=== PATIENT | female | born 1975 | race Caucasian/White ===

== ENCOUNTER 2018-03-12 07:45 | Emergency (ER) | payer SELFPAY ==
[~2018-03-12] VITALS: Ht 162.6 cm; Wt 88.9 kg
[2018-03-12 07:49] VITALS: BP 164/96; PULSE 91; TEMP 36.7; O2SAT 98; Ht 162.6 cm; Wt 88.9 kg
[2018-03-12] MEDS ORDERED: ALBUTEROL HFA 8 GM INHALER INH STA (08:07)
[2018-03-12] MEDS ORDERED: METH4PAK PO (08:10)
[2018-03-12] MEDS ORDERED: BENZ1CAP90 PO (08:10)
--- NOTE | 2018-03-12 08:13 | EMERGENCY ROOM VISIT NOTE ---
ED Visit Note First contact with patient: 07:50 CHIEF COMPLAINT: Sore throat, dry cough, congestion HISTORY OF PRESENT ILLNESS: This 43-year-old female patient presents to the emergency department ambulatory, complaining of sore throat, dry cough, congestion 5-6 days. The patient states the symptoms were mild initially, beginning with a sore throat and sneezing, but have since caused some nasal congestion, and chest congestion with dry cough. She states she has not been able to cough up any sputum except for first thing in the morning. Yesterday morning, the patient notes an itchy, watery, slightly erythematous right eye. The patient has taken intermittent Mucinex, cough drops, Tessalon, and Advil without relief of her symptoms. They deny any other symptoms including swollen lymph nodes, productive cough, objective fever, chills, nausea, or vomiting. She does report chills and subjective fever first thing this morning, but has taken no antipyretics and is afebrile here in the emergency department. There is pain with swallowing and the patient is having difficulty eating. The patient does not recall any known exposure to strep throat. Denies a rash. REVIEW OF SYSTEMS: A 10 system review of systems was performed with positives and pertinent negatives listed in the history of present illness. All other systems were reviewed and are negative. ALLERGIES: None MEDICATIONS: None PMH: None SOCIAL HISTORY: The patient lives locally with family. She denies drug alcohol , tobacco use. PHYSICAL EXAM: VITALS: Vitals are noted on the nurse's note and reviewed by myself. Vital signs stable. GENERAL: This is a 43-year-old white female, in no acute distress, nondiaphoretic, well-developed well-nourished. SKIN: The skin was without rashes, erythema, edema, or bruising. There is no tenting of the skin. Capillary reflex less than 2 seconds. HEAD: Normocephalic atraumatic. EARS: External auditory canals clear, tympanic membranes pearly nieto without erythema or effusion bilaterally. EYES: Pupils equal round and reactive to light and accommodation. Right conjunctiva with mild injection and watery drainage. Left conjunctivae without injection, but slight watery drainage noted. Sclerae without icterus. Extraocular movements intact. NOSE: Patent, turbinates pale with blue-sissy tint, with mild inflammation, no erythema, and watery discharge. No sinus tenderness. MOUTH: Mucous membranes moist. Tonsils are not enlarged. Pharynx without erythema or exudate. Mild post-nasal drainage noted. Uvula midline. Airway patent. Tongue does not deviate. NECK: Supple without nuchal rigidity. No lymphadenopathy. No thyromegaly. Cervical spine is nontender. No JVD. HEART: Regular rate and rhythm without murmurs gallops or rubs. LUNGS: Clear to auscultation bilaterally without wheezes, rales or rhonchi. No dullness to percussion. No retractions or accessory muscle use. MUSCULOSKELETAL: No muscle atrophy, erythema, or edema noted. Full range of motion without joint tenderness in all extremities. No tenderness to palpation. Normal gait. Strength 5/5 throughout. NEURO: Patient was alert and oriented to person place and time. Normal sensation to light and sharp touch. No focal neurological deficits. EMERGENCY DEPARTMENT COURSE: The patient was seen and evaluated as above. Her symptoms are consistent with allergic rhinitis, however due to the cough, I did offer to perform a chest x-ray. The patient declines. She will be treated symptomatically with an albuterol inhaler, antihistamines, decongestants, steroids, and cough medication. The patient was agreeable to this plan of care. She was encouraged to follow-up closely with her PCP or outpatient clinic if no improvement in symptoms in 1 week. All questions were answered to patient's satisfaction. She was given an inhaler with spacer here in the emergency department. Discharge instructions reviewed, and the patient was discharged home in good condition. I attest that I have personally reviewed the patient's current medication list. Patient was found to have normal blood pressure on screening and does not require follow-up. DIFFERENTIAL DIAGNOSIS: Allergic rhinitis, bronchitis, pneumonia, URI, Viral pharyngitis, Strep Pharyngitis, Gzbj-Gybx-Whyam Disease, Peritonsillar abscess, tonsillitis, malignancy, and others DIAGNOSIS: Allergic rhinitis The chart was completed utilizing [employer] voice recognition software. Grammatical errors, random word insertions, pronoun errors, and incomplete sentences are an occasional consequence of this system due to software limitations, ambient noise, and hardware issues. Any formal questions or concerns about the content, text, or information contained within the body of this dictation should be directly addressed to the provider for clarification. Current/Historical Medications Scheduled Methylprednisolone (Medrol Dosepak), 0 PO DAILY Scheduled PRN Benzonatate (Tessalon Perles), 200 MG PO TID PRN for Cough Allergies Coded Allergies: No Known Allergies (Unverified , 03/12/18) Vital Signs Date Time Temp Pulse Resp B/P (MAP) Pulse Ox O2 Delivery O2 Flow Rate FiO2 03/12/18 07:49 36.7 91 20 164/96 98 Room Air Medications Administered Medications (Trade) Dose Ordered Sig/Joyce Route Start Time Stop Time Status Last Admin Dose Admin Albuterol (Ventolin Hfa Inhaler) 2 puffs NOW STAT INH 03/12/18 08:07 03/12/18 08:09 DC 03/12/18 08:15 2 PUFFS Departure Information Impression Primary Impression: Allergic rhinitis Dispostion Home / Self-Care Condition GOOD Prescriptions Methylprednisolone (MEDROL DOSEPAK) 4 Mg Dave 0 PO DAILY, #1 PKT Prov: Adina Craig PA-C 03/12/18 Benzonatate (Tessalon Perles) 200 Mg Cap 200 MG PO TID Y for Cough for 10 Days, #30 CAP Prov: Adina Craig PA-C 03/12/18 Referrals [facility] (PCP) Patient Instructions Allergies Nasal Causes, ED Allergic Conjunctivitis, My [facility] Additional Instructions You were seen and evaluated in the emergency department today for dry cough, congestion, sore throat. I do feel that based on your symptoms, and the duration of illness, this is likely allergic vs. in nature. As discussed, antibiotics will not treat viral illness. Use Zyrtec, Claritin, OR, Sari for allergy symptoms. You may take a decongestant (sudafed) with these medication. You may take Zyrtec-D, Claritin-D , or Sari-D or add in a decongestant to the regular medications. Please do not exceed recommended daily dosages. You have been prescribed a Medrol Dosepak. This is a steroid which will help decrease your inflammation, redness, and itch. Take the medicine as prescribed. Take the ENTIRE 6 day course of the steroids. No NSAIDs while taking this medication. These include ibuprofen, naproxen, Motrin, Aleve, Advil. You have been provided with an albuterol inhaler to use for wheezing or difficulty breathing. Use this inhaler 1-2 puffs every 4-6 hours as needed. If you find that your symptoms are not improving with the use of the inhaler, or if you find that you need to use the inhaler longer than 1 week, return to the ED or follow-up with your PCP. You have been given benzonatate (Tessalon Pearles) to be used for coughing. These should be taken 1 capsule up to 3 times per day as needed for coughing. Do not take this medication more than prescribed. You may use this medication in addition to OTC cough medications. For your sore throat, you may use a 1:1 mixture of liquid Benadryl and liquid Maalox. Gargle and spit this mixture. It will help to soothe the throat and provide some relief. Drink warm tea with honey and lemon, as this will also help to soothe the throat. Gargle with salt water frequently. Ibuprofen(Motrin, Advil) may be used for fever or pain. Use 600mg every six hours as needed. Take with food. Avoid using more than 2400mg in a 24 hour period. Do not use 2400mg per day for more than three consecutive days without physician direction. Prolonged inappropriate use can lead to stomach upset or ulcers. This medication will help with the swelling in your sinuses. No NSAIDs while taking steroids. (AND/OR) Acetaminophen(Tylenol) may be used for fever or pain. Use 1000mg every six hours as needed. Avoid using more than 3000mg in a 24 hour period. For congestion, you may use Flonase OTC. Please get plenty of rest and drink plenty of fluids. Please return or follow-up with your PCP in 1 week if you are not experiencing any improvement in your symptoms. Return to the emergency department for coughing up blood, difficulty breathing, chest pain, worsening symptoms, or for other concerns. Problem Qualifiers Primary Impression: Allergic rhinitis Allergic rhinitis trigger: unspecified Allergic rhinitis seasonality: seasonal Qualified Codes: J30.2 - Other seasonal allergic rhinitis
== END 2018-03-12 08:20 | disposition home or self-care (01) ==
LOC: C.EDB 07:46 → C.EDA 08:20
DX: J30.2 Other seasonal allergic rhinitis (principal)